=== PATIENT | male | born 1980 | race Caucasian/White ===

== ENCOUNTER 2023-02-11 22:24 | Emergency (ER) | payer BC ==
[2023-02-11 23:15] LABS: INR 4.21; PROTHROMBIN TIME 40.5 SECONDS (9.7-12.0)
[2023-02-12 00:15] VITALS: BP 144/91; PULSE 81
== END 2023-02-12 00:02 | disposition home or self-care (01) ==
LOC: JD.ED 22:24
DX: S01.01XA Laceration without foreign body of scalp, initial encounter (principal); Z79.01 Long term (current) use of anticoagulants; W17.89XA Other fall from one level to another, initial encounter
CPT/HCPCS: 36415; 70450; 70450-26; 85610; 99283